=== PATIENT | female | born 1975 | race Caucasian/White ===

== ENCOUNTER 2016-12-18 08:25 | Emergency (ER) | payer MEDICAID ==
[~2016-12-18] VITALS: Ht 162.6 cm; Wt 99.8 kg
[2016-12-18 09:00] VITALS: BP 132/61
[2016-12-18] MEDS ORDERED: ASPirin 81 mg TAB PO ONE (09:00)
[2016-12-18] MEDS ORDERED: LORazepam 0.5 MG TAB PO ONE (09:00)
[2016-12-18 09:29] LABS: Basophils # (auto) 0 uL; Basophils % (auto) 0.4 % (0.0-2.0); Eosinophils # (auto) 0.1 uL; Eosinophils % (auto) 1.6 % (0.0-7.0); Hematocrit 41.3 % (36.0-46.0); Hemoglobin 14.4 g/dL (12.2-16.2); Mean Corpuscular Hemoglobin 30.8 pg (28.0-32.0); Mean Corpuscular Hgb Conc. 34.9 g/dL (32.0-36.0); Mean Corpuscular Volume 88.1 fL (80.0-100.0); Mean Platelet Volume 8.1 fL (6.9-10.8); Monocytes # (auto) 0.4 uL; Monocytes % (auto) 5.9 % (0.0-12.0); Neutrophils # (auto) 4.5 uL; Neutrophils % (auto) 64.1 % (37.0-80.0); Nucleated Red Blood Cells % 0.1 %; Platelet Count (auto) 258 10^3/uL (140-450)
[2016-12-18 09:50] LABS: Urine Bilirubin Negative (Negative); Urine Blood 3+ /uL (Negative); Urine Color Yellow (Yellow); Urine Glucose Normal (Normal); Urine Ketone Negative (Negative); Urine Mucus FEW (None Seen); Urine Nitrite Negative (Negative); Urine RBC 590 /hpf (0 - 4); Urine Squamous Epithelial Cell FEW /hpf (<5); Urine Urobilinogen Normal (Negative); Urine pH 5.5 (5.0-8.0)
[2016-12-18 09:59] LABS: Albumin 3.9 g/dL (3.4-5.0); Alkaline Phosphatase 94 U/L (45-117); Anion Gap 5 (5-15); Aspartate Aminotransferase 20 U/L (15-37); BUN/Creatinine Ratio 21.6; Bilirubin, Total 0.7 mg/dL (0.2-1.0); Blood Urea Nitrogen 16 mg/dL (7-18); Calcium 8.4 mg/dL (8.5-10.1); Carbon Dioxide 26 mmol/L (21-32); Chloride 107 mmol/L (98-107); GFR African American 111 mL/min; GFR Non-African American 92 mL/min; Glucose 95 mg/dL (74-106); Potassium 4.2 mmol/L (3.5-5.1); Sodium 138 mmol/L (136-145); Total Protein 7.6 g/dL (6.4-8.2)
== END 2016-12-18 10:40 | disposition home or self-care (01) ==
LOC: ER 08:25
DX: R10.12 Left upper quadrant pain (principal); N20.0 Calculus of kidney
CPT/HCPCS: 36415; 71010; 80053; 81001; 84484; 85025; 93005

== ENCOUNTER 2017-06-16 15:03 | Emergency (ER) | payer MEDICAID ==
[~2017-06-16] VITALS: Ht 162.6 cm; Wt 104.3 kg
[2017-06-16 15:18] VITALS: BP 127/77
== END 2017-06-16 17:51 | disposition home or self-care (01) ==
LOC: ER 15:08
DX: S93.402A Sprain of unspecified ligament of left ankle, initial encounter (principal); X50.0XXA Overexertion from strenuous movement or load, initial encounter; Y92.89 Other specified places as the place of occurrence of the external cause; Y93.89 Activity, other specified; Y99.8 Other external cause status
CPT/HCPCS: 73610